=== PATIENT | male | born 1980 | race Caucasian/White ===

== ENCOUNTER → 2018-08-23 | Outpatient (CLI) | payer OTHER ==
[~2018-08-23] MED LIST: 0.9 % SODIUM CHLORIDE 10 ML DISP.SYRIN. ID ONE; GADOBUTROL 7.5 MMOL/7.5 ML VIAL INT ART ONE; IOHEXOL 300 MG/ML 50 ML VIAL. INT ART ONE; LIDOCAINE 1% Multi-Dose 20 ML VIAL. ID ONE
--- NOTE | 2018-08-23 13:22 | KCIC ---
Clinical indications: Left shoulder pain. Recurrent left shoulder dislocations. Decreased range of motion. FLUOROSCOPIC GUIDED LEFT SHOULDER ARTHROGRAM INJECTION Procedure: The procedure and possible complications including bleeding and infection were explained. The patient provided both verbal and written consent. A timeout was performed confirming the name of the patient and date of and the procedure and side of the procedure. The anterior aspect of the left shoulder was prepped and draped in the usual sterile fashion with ChloraPrep. A total of 3 cc of 1% lidocaine was utilized for local anesthesia. Using sterile technique and fluoroscopic guidance, a 22-gauge spinal needle was directed into the left glenohumeral joint from an anterior approach. A solution containing 10 cc of sterile normal saline and 5 cc of Omnipaque 300 and 5 cc of 1% lidocaine and 0.1 cc of Gadavist was injected intra-articularly under fluoroscopic observation and a fluoroscopic spot view of the left shoulder was performed which confirmed intra-articular position of the contrast. The needle was removed and hemostasis was adequate. A sterile bandage was applied to the puncture site. One more fluoroscopic spot view of the left shoulder was performed. The patient tolerated the procedure well without complication and was sent to the MRI suite for further imaging. Total fluoroscopic time: 25 seconds. 2 fluoroscopic spot images were performed. Impression: Fluoroscopic guided left shoulder injection was performed prior to an MRI study. MRI LEFT SHOULDER ARTHROGRAM TECHNIQUE: After intra-articular injection of gadolinium as discussed above, post arthrogram MRI sequences of the left shoulder were performed in all 3 planes. An additional ABER sequence was performed. FINDINGS: No partial articular surface tear or complete tear of the rotator cuff is seen. The tendon of long of the biceps is intact. There is mild increased signal within it consistent with tendinosis. There is contrast seen extending into the superior labrum at the chondral labral junction posteriorly and anteriorly consistent with a chondral labral SLAP lesion. On the ABER sequence, there is a tear of the anterior glenoid labrum at the junction with the articular cartilage. In addition, more inferiorly the tear extends into the labral substance itself. No Hill-Sachs deformity is evident. The glenoid humeral joint is normally aligned. Articular cartilage of the glenohumeral joint is unremarkable and no loose body is evident. No bone marrow edema or fracture or marrow infiltrative process is seen. No AC joint separation is evident. No significant AC joint spurring is evident. No subdeltoid or subacromial bursitis is seen. IMPRESSION: No complete rotator cuff tear of the left shoulder. SLAP lesions. Electronically signed by: Radhames Mendieta MD (08/23/2018 1:19 PM) [id number]
--- NOTE | 2018-08-23 14:49 | KCIC ---
Clinical indications: Right shoulder pain. History of dislocations. Decreased range of motion. FLUOROSCOPIC-GUIDED RIGHT SHOULDER ARTHROGRAM INJECTION Procedure: The procedure and possible complications including bleeding and infection were explained. The patient provided both verbal and written consent. A timeout was performed confirming the name of the patient and date of and the procedure and side of the procedure. The anterior aspect of the right shoulder was prepped and draped in the usual sterile fashion with ChloraPrep. A total of 3 cc of 1% lidocaine was utilized for local anesthesia. Using sterile technique and fluoroscopic guidance, a 22-gauge spinal needle was directed into the right glenohumeral joint from an anterior approach. A solution containing 10 cc of sterile normal saline and 5 cc of Omnipaque 350 and 5 cc of 1% lidocaine and 0.1 cc of Gadavist was injected intra-articularly under fluoroscopic observation and a fluoroscopic spot view of the right shoulder was performed which confirmed intra-articular position of the contrast. The needle was removed and hemostasis was adequate. A sterile bandage was applied to the puncture site. Another fluoroscopic spot view was obtained. The patient tolerated the procedure well without complication and was sent to the MRI suite for further imaging. Total fluoroscopic time: 14 seconds. 2 fluoroscopic spot images were performed. IMPRESSION: Fluoroscopic guided right shoulder injection was performed prior to an MRI study. MRI RIGHT SHOULDER ARTHROGRAM TECHNIQUE: Noncontrast MRI sequences of the right shoulder were performed in all 3 planes. An additional ABER sequence was obtained. FINDINGS: There is a partial articular surface tear of the lateral aspect of the supraspinatus tendon anteriorly. This extends through 75 % of the thickness of the tendon. No complete rotator cuff tear is evident otherwise. There is a tear of the superior aspect of the subscapularis tendon at the insertion onto the lesser tubercle. The transverse ligament attachment here is torn as well. This results in mild medial subluxation of the tendon of long of the biceps within the upper bicipital groove. Mild tendinosis of this portion of the biceps tendon is seen. Otherwise this tendon is intact. No muscle atrophy is evident. Mild subdeltoid and subacromial bursitis is seen. 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 A type III acromial process is seen. These findings may impinge the acromial humeral space. Mild chronic cystic change of the lateral aspect of the humeral head is seen secondary to chronic impingement. There is a SLAP lesion extending anteriorly and posteriorly. It extends posteriorly down through to the mid to lower aspect of the glenoid. Anteriorly, it extends down to the mid to lower aspect as well best seen in the ABER sequence. No spinoglenoid notch ganglion cyst is seen.The glenohumeral joint is normally aligned otherwise. No loose body is seen. No bone marrow edema or fracture or marrow infiltrative process is seen. IMPRESSION: Partial articular surface tear of the anterior portion of the lateral aspect of the supraspinatus tendon at the attachment to the greater tubercle. This extends through at least 75% of the thickness of the tendon. No complete rotator cuff tear. Impingement of the acromial humeral space as discussed above. Mild subdeltoid/subacromial bursitis. There is a tear of the superior aspect of the subscapularis tendon attachment to the lesser tubercle. The tear extends through the transverse ligament extension as well resulting in medial subluxation of the biceps tendon within the upper bicipital groove. Mild chronic tendinosis of the biceps tendon here. SLAP lesion which extends through approximately 270 degrees of the upper aspect of the glenoid. Electronically signed by: Radhames Mendieta MD (08/23/2018 2:46 PM) [id number]
== END | disposition home or self-care (01) ==
LOC: KCIC 10:16
PROVIDERS: ATTEND Physician Assistant
DX: S43.431A Superior glenoid labrum lesion of right shoulder, initial encounter (principal); S43.432A Superior glenoid labrum lesion of left shoulder, initial encounter; S46.011A Strain of muscle(s) and tendon(s) of the rotator cuff of right shoulder, initial encounter; M75.41 Impingement syndrome of right shoulder; M75.51 Bursitis of right shoulder; M75.21 Bicipital tendinitis, right shoulder; X58.XXXA Exposure to other specified factors, initial encounter; Y93.89 Activity, other specified; Y92.89 Other specified places as the place of occurrence of the external cause; Y99.8 Other external cause status; Z87.891 Personal history of nicotine dependence
CPT/HCPCS: 23350; 73040; 73222; A9585; Q9967